=== PATIENT | male | born 1985 | race African-American/Black ===

== ENCOUNTER 2017-01-21 00:38 | Emergency (ER) | payer OTHER ==
[2017-01-21 01:08] VITALS: TEMP 98.4; BMI 25.8
[2017-01-21] MEDS ORDERED: SODIUM CHLORIDE 1,000 ML IV STA (01:08)
[2017-01-21] MEDS ORDERED: ASPIRIN 81 MG CHEWABLE TABLETS PO ONE (01:08)
--- NOTE | 2017-01-21 01:08 | PDOC ---
History of Present Illness - General Chief Complaint: Chest Pain Stated Complaint: CHEST PAIN Time Seen by Provider: 01/21/17 00:59 History Source: Patient Exam Limitations: No Limitations - History of Present Illness Presenting Symptoms: Chest Pain Timing/Duration: reports: intermittent Severity/Quality: reports: mild Location: reports: substernal Chest Pain Radiation: reports: no radiation Activities at Onset: reports: rest Prior Chest Pain/Cardiac Workup: denies: No prior chest pain Past History - Travel Traveled outside of the country in the last 30 days: No Close contact w/someone who was outside of country & ill: No - Past Medical History Allergies/Adverse Reactions: Allergies Allergy/AdvReac Type Severity Reaction Status Date / Time shellfish derived Allergy Verified 01/21/17 01:02 Home Medications: Ambulatory Orders Aspirin [ASA -] 81 mg PO PRN 01/21/17 - Psycho/Social/Smoking Cessation Hx Anxiety: No Suicidal Ideation: No Smoking History: Never smoked Have you smoked in the past 12 months: No Hx Alcohol Use: No Drug/Substance Use Hx: No Substance Use Type: None Cardiac Specific PMH - Complaint Specific PMHX Other History: "Lone A fib" Review of Systems - Review of Systems Able to Perform ROS?: Yes Comments:: 01/21/17 01:06 CONSTITUTIONAL: Absent: fever, chills, diaphoresis, generalized weakness, malaise, loss of appetite HEENT: Absent: rhinorrhea, nasal congestion, throat pain, throat swelling, difficulty swallowing, mouth swelling, ear pain, eye pain, visual Changes CARDIOVASCULAR: +chest pain Absent: loss of consciousness, palpitations, irregular heart rate, peripheral edema RESPIRATORY: Absent: cough, shortness of breath, dyspnea with exertion, orthopnea, wheezing, stridor, hemoptysis GASTROINTESTINAL: Absent: abdominal pain, abdominal distension, nausea, vomiting, diarrhea, constipation, melena, hematochezia GENITOURINARY: Absent: dysuria, frequency, urgency, hesitancy, hematuria, flank pain, genital pain MUSCULOSKELETAL: Absent: myalgia, arthralgia, joint swelling SKIN: Absent: rash, itching, pallor HEMATOLOGIC/IMMUNOLOGIC: Absent: easy bleeding, easy bruising, lymphadenopathy, frequent infections ENDOCRINE: Absent: unexplained weight gain, unexplained weight loss, heat intolerance, cold intolerance NEUROLOGIC: Absent: headache, focal weakness or paresthesias, dizziness, unsteady gait, seizure, mental status changes, bladder or bowel incontinence PSYCHIATRIC: Absent: anxiety, depression, suicidal or homicidal ideation, hallucinations. Is the patient limited Hungarian proficient: No *Physical Exam - Vital Signs Last Vital Signs Temp Pulse Resp BP Pulse Ox 98.4 F 70 18 123/85 100 01/21/17 01:03 01/21/17 01:03 01/21/17 01:03 01/21/17 01:03 01/21/17 01:03 - Physical Exam Comments: 01/21/17 01:06 GENERAL: Well developed, well nourished. Awake and alert. No acute distress. HEENT: Normocephalic, atraumatic. PERRLA, EOMI. No conjunctival pallor. Sclera are non- icteric. Moist mucous membranes. Oropharynx is clear. NECK: Supple. Full ROM. No JVD. Carotid pulses 2+ and symmetric, without bruits. No thyromegaly. No lymphadenopathy. CARDIOVASCULAR: Regular rate and rhythm. No murmurs, rubs, or gallops. Distal pulses are 2+ and symmetric. PULMONARY: No evidence of respiratory distress. Lungs clear to auscultation bilaterally. No wheezing, rales or rhonchi. ABDOMINAL: Soft. Non-tender. Non-distended. No rebound or guarding. No organomegaly. Normoactive bowel sounds. MUSCULOSKELETAL Normal range of motion at all joints. No bony deformities or tenderness. No CVA tenderness. EXTREMITIES: No cyanosis. No clubbing. No edema. No calf tenderness. SKIN: Warm and dry. Normal capillary refill. No rashes. No jaundice. NEUROLOGICAL: Alert, awake, appropriate. Cranial nerves 2-12 intact. No deficits to light touch and temperature in face, upper extremities and lower extremities. No motor deficits in the in face, upper extremities and lower extremities. Normoreflexic in the upper and lower extremities. Normal speech. Toes are down- going bilaterally. Gait is normal without ataxia. PSYCHIATRIC: Cooperative. Good eye contact. Appropriate mood and affect. Heart Score/ECG Review - History History: Slightly suspicious - Electrocardiogram EKG: Normal - Age Age: </= 45 - Risk Factors Risk Factors Heart Score: No Hx Hypercholesterolemia, No Hx Hypertension, No Hx Diabetes, No Smoking History, No Positive family hx of cardiac disease, No Hx Obesity Based on the list above the patient has:: No risk factors known - Troponin Troponin: </= normal limit - Score Heart Score - Total: 0 - ECG Intrepretation Rhythm: Regular Rhythm - [place]: Normal ED Treatment Course - LABORATORY CBC & Chemistry Diagram: 01/21/17 01:05 01/21/17 01:05 - ADDITIONAL ORDERS Additional order review: Laboratory Results 01/21/17 01/21/17 01/21/17 01:05 01:05 01:05 D-Dimer < 200 Sodium 141 Potassium 3.9 Chloride 103 Carbon Dioxide 30 Anion Gap 8 BUN 18 Creatinine 1.2 Creat Clearance w eGFR > 60 Random Glucose 93 Calcium 8.9 Total Bilirubin 1.1 H AST 29 ALT 71 Alkaline Phosphatase 75 Creatine Kinase 400 H Creatine Kinase Index 0.9 CK-MB (CK-2) 3.721 H CK-MB (CK-2) Rel Index Cancelled Troponin I < 0.02 Total Protein 7.0 Albumin 3.7 01/21/17 01:05 RBC 4.97 MCV 87.4 MCHC 33.0 RDW 14.0 MPV 9.6 Neutrophils % 43.0 Lymphocytes % 43.9 H Monocytes % 10.9 H Eosinophils % 1.3 Basophils % 0.9 - RADIOLOGY Radiology Studies Ordered: Category Date Time Status CHEST PA & LAT [RAD] Stat Radiology 01/21/17 01:08 Taken - Medications Given in the ED: ED Medications Discontinued Medications Generic Name Dose Route Start Last Admin Trade Name Freq PRN Reason Stop Dose Admin Aspirin 162 mg 01/21/17 01:08 01/21/17 01:17 Asa - PO 01/21/17 01:09 162 mg ONCE ONE Administration Sodium Chloride 1,000 mls @ 1,000 mls/hr 01/21/17 01:08 01/21/17 01:17 Normal Saline - IV 01/21/17 02:07 1,000 mls/hr ASDIR STA Administration Progress Note - Progress Note Progress Note: 31-year-old male with past medical history of "lone atrial fibrillation" presents to the emergency department today complaining of midsternal 7/10 sharp intermittent nonradiating chest pain times one hour while at rest/watching a movie. The pain is alleviated with time and there are no exacerbating factors. Since arriving to the emergency department, patient states his pain is a 5/10 discomfort. He denies any nausea/vomiting, fever/chills/diarrhea/constipation, shortness of breath, abdominal pains, back pains, extremity numbness or tingling sensation. 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 He was offered surgery versus medication. Patient states he will see the mason apprentice back in 5 months to make a decision is the chest discomfort continues. Pt reports he's been working out rigorously. Patient is not on any blood thinners. Will do second set of trops and have pt f/u with cardiology if NL *DC/Admit/Observation/Transfer Diagnosis at time of Disposition: Atypical chest pain - Discharge Dispostion Condition at time of disposition: Stable - Patient Instructions Printed Discharge Instructions: DI for Atypical Chest Pain Additional Instructions: Avoid working out/exercising Follow up with the [employer] Window [employer] for an Echo Return to the ER for severe/persistent/worsening symptoms
[2017-01-21] MEDS ORDERED: ASPIRIN 81 MG CHEWABLE TABLETS ONE (01:16)
--- NOTE | 2017-01-21 01:16 | PDOC ---
*Physical Exam - Vital Signs Last Vital Signs Temp Pulse Resp BP Pulse Ox 98.4 F 70 18 123/85 100 01/21/17 01:03 01/21/17 01:03 01/21/17 01:03 01/21/17 01:03 01/21/17 01:03 ED Treatment Course - LABORATORY CBC & Chemistry Diagram: 01/21/17 01:05 01/21/17 01:05 Medical Decision Making - Medical Decision Making 01/21/17 01:16 agree with care from MICHAEL Kaplan *DC/Admit/Observation/Transfer Diagnosis at time of Disposition: Atypical chest pain - Discharge Dispostion Disposition: HOME Condition at time of disposition: Stable - Patient Instructions Printed Discharge Instructions: DI for Atypical Chest Pain Additional Instructions: Avoid working out/exercising Follow up with the Senior [employer] Developer for an Echo Return to the ER for severe/persistent/worsening symptoms - Post Discharge Activity Work/School Note: Back to Work
[2017-01-21 01:31] LABS: BASOPHIL 0.9 % (0-2.0); EOSINOPHIL 1.3 % (0-4.5); MCH 28.9 pg (25.7-33.7); MEAN CELL VOLUME 87.4 fl (80-96); MEAN PLT VOLUME 9.6 fl (7.5-11.1); PLATELET COUNT 196 K/MM3 (134-434)
[2017-01-21 02:09] LABS: ALBUMIN 3.7 g/dl (3.4-5.0); ANION GAP 8 (8-16); BILIRUBIN,TOTAL 1.1 mg/dL (0.2-1.0); CALCIUM 8.9 mg/dL (8.5-10.1); CO2 30 mmol/L (21-32); CREATININE 1.2 mg/dL (0.7-1.3); GLUCOSE,RANDOM 93 mg/dL (74-106); SGOT/AST 29 U/L (15-37); SGPT/ALT 71 U/L (12-78)
[2017-01-21 02:11] LABS: ALK PHOS 75 U/L (45-117); TROPONIN I < 0.02 ng/ml (0.00-0.05)
[2017-01-21] MEDS ORDERED: IBUPROFEN 600 MG TABLET (FP) PO ONE (03:05)
[2017-01-21 06:33] VITALS: BP 134/70; PULSE 76
--- NOTE | 2017-01-21 09:54 | EKG ---
Test Reason : Blood Pressure : / mmHG Vent. Rate : 070 BPM Atrial Rate : 070 BPM P-R Int : 144 ms QRS Dur : 094 ms QT Int : 362 ms P-R-T Axes : 023 033 -01 degrees QTc Int : 390 ms NORMAL SINUS RHYTHM NONSPECIFIC ST ABNORMALITY NO PREVIOUS ECGS AVAILABLE Confirmed by ROBLES COLLIER MD ([id number]) on 01/21/2017 9:53:44 AM Referred By: Confirmed By:ROBLES COLLIER MD
== END 2017-01-21 06:33 | disposition home or self-care (01) ==
LOC: JER 00:38
PROC: 3E0337Z Introduction of Electrolytic and Water Balance Substance into Peripheral Vein, Percutaneous Approach (ICD-10-PCS; principal; 2017-01-21)
DX: R07.89 Other chest pain (principal); I48.91 Unspecified atrial fibrillation
CPT/HCPCS: 36415; 71020-TC; 80053; 82550; 82553; 84484; 85025; 85379; 93005; 93010; 99281-25

== ENCOUNTER 2017-07-16 17:23 | Emergency (ER) | payer OTHER ==
[2017-07-16 17:30] VITALS: BP 138/88; PULSE 66; TEMP 98.5; BMI 39.4
--- NOTE | 2017-07-16 19:20 | PDOC ---
History of Present Illness - General Chief Complaint: RX Refill Stated Complaint: VACCINE Time Seen by Provider: 07/16/17 18:46 History Source: Patient Exam Limitations: No Limitations - History of Present Illness Initial Comments: 07/16/17 19:25 07/16/17 19:26 My chief complaint: Patient's just gave patient needs tdap History of present illness: Patient is a 31-year-old male with h/o atrial fibrillation and sleep apnea who came down from labor and delivery requesting a TDAP Since his just gave . He denies any current palpitations. Or any shortness of breath. 07/16/17 19:36 Past History - Past Medical History Allergies/Adverse Reactions: Allergies Allergy/AdvReac Type Severity Reaction Status Date / Time shellfish derived Allergy Verified 07/16/17 17:30 Home Medications: Ambulatory Orders Aspirin [ASA -] 81 mg PO PRN 01/21/17 Cardiac Disorders: Yes (lone a-fib?) Diabetes: No HTN: No Hypercholesterolemia: No - Psycho/Social/Smoking Cessation Hx Anxiety: No Suicidal Ideation: No Smoking History: Never smoked Have you smoked in the past 12 months: No Hx Alcohol Use: No Drug/Substance Use Hx: No Substance Use Type: None Review of Systems - Review of Systems Able to Perform ROS?: Yes Constitutional: No: Symptoms Reported HEENTM: No: Symptoms Reported Respiratory: No: Symptoms reported Cardiac (ROS): No: Symptoms Reported ABD/GI: No: Symptoms Reported : No: Symptoms Reported Musculoskeletal: No: Symptoms Reported Integumentary: No: Symptoms Reported Neurological: No: Symptoms reported *Physical Exam - Vital Signs Last Vital Signs Temp Pulse Resp BP Pulse Ox 98.5 F 66 18 138/88 98 07/16/17 17:26 07/16/17 17:26 07/16/17 17:26 07/16/17 17:26 07/16/17 17:26 - Physical Exam Comments: 07/16/17 19:28 General Appearance: Yes: Appropriately Dressed Respiratory/Chest: positive: Lungs Clear, Normal Breath Sounds. negative: Chest Tender, Respiratory Distress Cardiovascular: positive: Regular Rhythm, Regular Rate, S1, S2 Integumentary: positive: Normal Color Neurologic: positive: Alert, Normal Response Medical Decision Making - Medical Decision Making 07/16/17 19:37 Patient is a 31-year-old male with h/o atrial fibrillation and sleep apnea who came down from labor and delivery requesting a TDAP Since his just gave . He denies any current palpitations. Or any shortness of breath. needs TDAP PLAN: TDAP 0.5ML IM NOW *DC/Admit/Observation/Transfer Diagnosis at time of Disposition: Need for [id number] (Tdap) vaccine, adult/adolescent - Discharge Dispostion Disposition: HOME Condition at time of disposition: Stable - Patient Instructions Additional Instructions: Today your tetanus diphtheria and pertussis vaccine was updated Follow-up with your primary care provider as needed Return to emergency room if any symptoms develop Patient voiced understanding of discharge instructions and all questions were answered
[2017-07-16] MEDS ORDERED: DIPHTH,PERTUSS(ACELL),TET 0.5 ML DISP.SYRIN IM ONE (19:26)
== END 2017-07-16 19:40 | disposition home or self-care (01) ==
LOC: JERFT 17:23
PROC: 3E0234Z Introduction of Serum, Toxoid and Vaccine into Muscle, Percutaneous Approach (ICD-10-PCS; principal; 2017-07-16)
DX: Z23 Encounter for immunization (principal); Q06.8 Other specified congenital malformations of spinal cord
CPT/HCPCS: 90715; 99281-25

== ENCOUNTER 2018-12-25 11:51 | Emergency (ER) | payer OTHER ==
[2018-12-25 12:01] VITALS: BP 128/82; PULSE 72; TEMP 98.6; BMI 42.4
--- NOTE | 2018-12-25 13:35 | PDOC ---
History of Present Illness - General Chief Complaint: Injury Stated Complaint: RT TWISTED ANKLE Time Seen by Provider: 12/25/18 13:30 - History of Present Illness Initial Comments: 12/25/18 13:33 33-year-old male without comorbidities presents for evaluation of right ankle pain after describing an inversion injury which occurred at home. Past History - Past Medical History Allergies/Adverse Reactions: Allergies Allergy/AdvReac Type Severity Reaction Status Date / Time shellfish derived Allergy Verified 07/16/17 17:30 Home Medications: Ambulatory Orders NK [No Known Home Medication] 12/25/18 Cardiac Disorders: Yes (lone a-fib?) Diabetes: No HTN: No Hypercholesterolemia: No - Suicide/Smoking/Psychosocial Hx Smoking History: Never smoked Have you smoked in the past 12 months: No Information on smoking cessation initiated: No Hx Alcohol Use: No Drug/Substance Use Hx: No Substance Use Type: None Review of Systems - Review of Systems Musculoskeletal: Yes: Joint Pain *Physical Exam - Vital Signs Last Vital Signs Temp Pulse Resp BP Pulse Ox 98.6 F 72 20 128/82 100 12/25/18 11:58 12/25/18 11:58 12/25/18 11:58 12/25/18 11:58 12/25/18 11:58 - Physical Exam Comments: 12/25/18 13:34 Right ankle skin color and temperature are normal. Range of motion is limited. There is no tenderness about the knee proximal fibula or along its distal coarse. Mild tenderness over the lateral malleolus moderate tenderness over the ATFL. No tenderness about the medial malleolus base of the fifth metatarsal or navicular. No instability or gross sensorimotor deficits. He is neurovascularly intact. Moderate swelling about the lateral aspect of the right ankle stability testing most likely not accurate because of his resistance. Moderate Sedation - Procedure Monitoring Vital Signs: Procedure Monitoring Vital Signs Temperature 98.6 F 12/25/18 11:58 Pulse Rate 72 12/25/18 11:58 Respiratory Rate 20 12/25/18 11:58 Blood Pressure 128/82 12/25/18 11:58 O2 Sat by Pulse Oximetry (%) 100 12/25/18 11:58 ED Treatment Course - RADIOLOGY Radiology Studies Ordered: Category Date Time Status ANKLE-RIGHT [RAD] Stat Radiology 12/25/18 13:33 Ordered Medical Decision Making - Medical Decision Making 12/25/18 13:58 no fx *DC/Admit/Observation/Transfer Diagnosis at time of Disposition: Ankle sprain - Discharge Dispostion Disposition: HOME Condition at time of disposition: Stable Decision to Admit order: No - Referrals Referrals: Arturo Shaw MD [Primary Care Provider] - Boogie Crowley DO [Staff Physician] - - Patient Instructions Printed Discharge Instructions: Ankle Sprain, DI for Ankle Sprain Additional Instructions: He may weight-bear as tolerated with use of crutches and the Aircast. Tylenol Motrin as directed for pain. Return to the emergency room should symptoms worsen or go unresolved. Follow-up with orthopedic surgery in 1-2 days for further evaluation and treatment options. They're expecting her call. - Post Discharge Activity
== END 2018-12-25 14:09 | disposition home or self-care (01) ==
LOC: JERFT 11:51
PROC: 2W3QX1Z Immobilization of Right Lower Leg using Splint (ICD-10-PCS; principal; 2018-12-25)
DX: S93.401A Sprain of unspecified ligament of right ankle, initial encounter (principal); X50.1XXA Overexertion from prolonged static or awkward postures, initial encounter; Y93.89 Activity, other specified; Y92.038 Other place in apartment as the place of occurrence of the external cause; Y99.8 Other external cause status
CPT/HCPCS: 73610-TC-RT-FY; 99281-25